=== PATIENT | female | born 1945 | race Caucasian/White ===

== ENCOUNTER → 2016-09-29 | Outpatient (CLI) | payer OTHER | LOC: FIMAGING 14:13 | PROVIDERS: ATTEND Family Medicine | DX: Z12.31 Encounter for screening mammogram for malignant neoplasm of breast (principal) | CPT/HCPCS: G0202 ==

== ENCOUNTER → 2017-05-24 | Outpatient (CLI) | payer OTHER | LOC: BMCIMAGING 14:56 | PROVIDERS: ATTEND Family Medicine | DX: Z01.818 Encounter for other preprocedural examination (principal); M25.569 Pain in unspecified knee; J44.9 Chronic obstructive pulmonary disease, unspecified; R91.8 Other nonspecific abnormal finding of lung field ==

== ENCOUNTER → 2017-05-31 | Outpatient (CLI) | payer OTHER ==
[~2017-05-31] MED LIST: IOPAMIDOL (ISOVUE-300) 100 ML BTL ONE
== END ==
LOC: FIMAGING 14:07
PROVIDERS: ATTEND Orthopaedic Surgery
DX: Z01.818 Encounter for other preprocedural examination (principal); M17.12 Unilateral primary osteoarthritis, left knee; R93.8 Abnormal findings on diagnostic imaging of other specified body structures
CPT/HCPCS: 71260; 73700; Q9967

== ENCOUNTER 2017-06-29 06:52 | Observation (INO) | payer OTHER ==
[~2017-06-29 06:52] MED LIST changes: -IOPAMIDOL (ISOVUE-300) 100 ML BTL ONE; +ROPIVACAINE 0.2% 80 MG, EPINEPHrine 0.2 MG, KETOROLAC TROMETHAMINE 30 MG in SYRINGE 0 ML IU ONE; +TRANEXAMIC ACID 3,000 MG in NS (SYRINGE) 50 ML IRR ONE
[2017-06-29] MEDS ORDERED: BUPI/epINEPH/KETOROLAC IU ONE (07:00)
[2017-06-29] MEDS ORDERED: FAMOTIDINE 20 MG TAB PO ONE (07:04)
[2017-06-29] MEDS ORDERED: ACETAMINOPHEN 325 MG TAB PO ONE (07:04)
[2017-06-29] MEDS ORDERED: ceFAZolin 2 GM/SWFI 2 GM/20 ML SYR IVP ONE (07:04)
[2017-06-29] MEDS ORDERED: DEXAMETHASONE 4 MG/ML VIAL IVP ONE (07:04)
[2017-06-29] MEDS ORDERED: LR 1,000 ML IV ONE (07:05)
[2017-06-29] MEDS ORDERED: LIDOCAINE 1% 2 ML INJ ID PRN (07:05)
--- NOTE | 2017-06-29 07:09 | PDHPUP ---
History & Physical Update H&P update statement: This history and physical update is based on an assessment of the patient which was completed after admission or registration (within 24 hours), but prior to the surgery/procedure. H&P update: H&P reviewed & patient examined, no change in patient's condition since H&P completed
[2017-06-29] MEDS ORDERED: MIDAZOLAM 2 MG/2 ML VIAL IVP ONE (07:54)
--- NOTE | 2017-06-29 07:55 | PDANEPAE ---
ANE History of Present Illness here for TKA ANE Past Medical History - Cardiovascular History Hx Hypertension: No Hx Arrhythmias: No Hx Chest Pain: No Hx Coronary Artery / Peripheral Vascular Disease: No Hx CHF / Valvular Disease: No Hx Palpitations: No Cardiovascular History Comment: on simvastatin - Pulmonary History Hx COPD: No Hx Asthma/Reactive Airway Disease: No Hx Recent Upper Respiratory Infection: No Hx Oxygen in Use at Home: No Hx Sleep Apnea: No Sleep Apnea Screening Result - Last Documented: Negative - Neurologic History Hx Cerebrovascular Accident: No Hx Seizures: No Hx Dementia: No - Endocrine History Hx Diabetes: No Endocrine History Comment: hypothyroid - Renal History Hx Renal Disorders: No - Liver History Hx Hepatic Disorders: No - Neurological & Psychiatric Hx Hx Neurological and Psychiatric Disorders: No - Cancer History Hx Cancer: No - Congenital Disorder History Hx Congenital Disorders: No - GI History Hx Gastrointestinal Disorders: No - Other Health History Other Health History: Post Polio Syndrome-weaker L leg;. OA L knee; - Chronic Pain History Chronic Pain: Yes (L knee) - Surgical History Prior Surgeries: hysterectomy. L knee scope. L leg-post polio. R knee sx- child ANE Review of Systems Review of systems is: negative Review of Systems: - Exercise capacity Exercise capacity: >=4 METS METS (RN): 4 METS ANE Patient History - Allergies Allergies/Adverse Reactions: No Known Allergies Allergy (Verified 06/12/17 11:00) - Home Medications Home medications: home medication list seen and reviewed Home Medications: Carboxymethylcellulose 1% [Refresh Celluvisc (*)] 1 drop EACHEYE DAILY PRN 06/08 [Last Taken 06/29/17] Cholecalciferol Vit D3 [Vitamin D3 2000 units tab (OTC)] 2,000 units PO DAILY [Last Taken 06/15/17] Herbals/Supplements -Info Only 1 ea PO DAILY 06/08/17 [Last Taken 06/15/17] Levothyroxine [Synthroid 75 mcg (*)] 75 mcg PO DAILY06 06/08/17 [Last Taken ] Multivitamins [Multivitamin (*)] 1 each PO DAILY 06/08/17 [Last Taken 06/15/17] [place]-3 Fatty Acids [Fish Oil 1000 mg (*)] 1,000 mg PO DAILY 06/08/17 [Last Taken 06/15/17] Simvastatin [Zocor] 40 mg PO DAILY 06/08/17 [Last Taken 06/29/17] - NPO status NPO Status: no food or drink >8 hours NPO Since - Liquids (Date): 06/29/17 NPO Since - Liquids (Time): 06:00 NPO Since - Solids (Date): 06/28/17 NPO Since - Solids (Time): 19:00 - Smoking Hx Smoking Status: Former smoker ANE Labs/Vital Signs - Vital Signs Vital Signs: reviewed preoperatively; see RN documention for details Blood Pressure: 131/75 Heart Rate: 73 Respiratory Rate: 16 O2 Sat (%): 94 Height: 160.02 cm Weight: 63.503 kg ANE Physical Exam - Airway Neck exam: FROM - Pulmonary Pulmonary: no respiratory distress - Cardiovascular Cardiovascular: regular rate and rhythym - ASA Status ASA Status: II ANE Anesthesia Plan Anesthesia Plan: spinal
[2017-06-29] MEDS ORDERED: TRANEXAMIC ACID 3,000 MG/50 ML BAG IRR ONE (08:05)
[2017-06-29] MEDS ORDERED: DEXAMETHASONE 4 MG/ML VIAL IVP PRN (08:59)
[2017-06-29] MEDS ORDERED: fentaNYL 100 MCG/2 ML INJ IVP PRN (08:59)
[2017-06-29] MEDS ORDERED: ALBUTEROL 3 ML DEYVIAL IH PRN (08:59)
[2017-06-29] MEDS ORDERED: oxyCODONE IR 5 MG TAB PO PRN (08:59)
[2017-06-29] MEDS ORDERED: ONDANSETRON 4 MG/2 ML VIAL IVP PRN ×2 (08:59→10:57)
[2017-06-29] MEDS ORDERED: NALOXONE HCL 0.4 MG/ML INJ IVP PRN (08:59)
[2017-06-29] MEDS ORDERED: HYDROmorphone HCL/NS 0.5 MG/ML SYR IVP PRN (08:59)
[2017-06-29] MEDS ORDERED: HYDROCODONE/APAP 5/325 TAB PO PRN (08:59)
[2017-06-29] MEDS ORDERED: LR 500 ML IV PRN (08:59)
[2017-06-29] MEDS ORDERED: PROPOFOL/EMULSION 500 MG/50 ML BOTTLE IV ONE (09:05)
[2017-06-29] MEDS ORDERED: fentaNYL 100 MCG/2 ML INJ ONE (09:10)
[2017-06-29] MEDS ORDERED: PROMETHAZINE HCL 25 MG/ML INJ IVP PRN (10:57)
[2017-06-29] MEDS ORDERED: POLYETHYLENE GLYCOL 3350 17 GM PKT PO PRN (10:57)
[2017-06-29] MEDS ORDERED: METOCLOPRAMIDE 10 MG/2 ML VIAL IVP PRN (10:57)
[2017-06-29] MEDS ORDERED: TEMAZEPAM 15 MG CAP PO PRN (10:57)
[2017-06-29] MEDS ORDERED: LACTULOSE 20 GM/30 ML UDCUP PO PRN (10:57)
[2017-06-29] MEDS ORDERED: PROMETHAZINE HCL 25 MG SUPPR PR PRN (10:57)
[2017-06-29] MEDS ORDERED: CYCLOBENZAPRINE 10 MG TAB PO PRN (10:57)
[2017-06-29] MEDS ORDERED: MAGNESIUM HYDROXIDE 30 ML UDCUP PO PRN (10:57)
[2017-06-29] MEDS ORDERED: ONDANSETRON DISINTEGRATING 4 MG TAB PO PRN (10:57)
[2017-06-29] MEDS ORDERED: BISACODYL 10 MG SUPP PR PRN (10:57)
[2017-06-29] MEDS ORDERED: diphenhydrAMINE 25 MG CAP PO PRN (10:57)
[2017-06-29] MEDS ORDERED: DIPHENOXYLATE/ATROPINE LOMOTIL 1 TAB PO PRN (10:57)
--- NOTE | 2017-06-29 10:57 | POSTOPPROG ---
Post Op Note Date of Operation: 06/29/17 Surgeon: Michael Montoya Lead Nuclear Medicine Technologist: crystal montoya Anesthesiologist: dr. rowan Anesthesia: Spinal, Other (Specify) (adductor canal block) Pre-op Diagnosis: left knee OA and global instability Post-op Diagnosis: same Indication: left knee pain due to OA that failed conservative measures Procedure: L TKA robot assisted Findings: severe knee OA and global instability Inf/Abcess present in the surg proc area at time of surgery?: No EBL: 50-100
[2017-06-29] MEDS ORDERED: LR 1,000 ML IV SCH (11:00)
[2017-06-29] MEDS ORDERED: CARBOXYMETHYLCELLULOSE 1% 0.4 ML DROPERETTE EACHEYE PRN (11:08)
[2017-06-29] MEDS: ACETAMINOPHEN 325 MG TAB PO SCH ×2 (13:23→17:38)
--- NOTE | 2017-06-29 13:58 | POSTANESTH ---
Post Anesthetic Evaluation Cardiovascular Status: Normal, Stable Respiratory Status: Normal, Stable Level of Consciousness/Mental Status: Can Participate in Eval Pain Control: Adequate, Prn Tx Ordered Nausea/Vomiting Control: Adequate, Prn Tx Ordered Complications Possibly Related to Anesthesia: None Noted
[2017-06-29] MEDS ORDERED: ceFAZolin 2 GM/DEXTROSE 100 ML IV SCH (14:00)
--- NOTE | 2017-06-29 17:12 | GOP ---
[f rep st] OPERATIVE REPORT DATE OF OPERATION: 06/29/2017 SURGEON: Mony Garcia MD [employer]: Libia Garcia PA-C. ANESTHESIA: Spinal. PREOPERATIVE DIAGNOSIS: Left knee osteoarthritis. POSTOPERATIVE DIAGNOSIS: Left knee osteoarthritis. PROCEDURE PERFORMED: Left total knee arthroplasty with computer navigation, robotic assist. FINDINGS: ESTIMATED BLOOD LOSS: 30 cc. INDICATIONS: The patient is a 72-year-old female with severe and progressive pain and deformity of the left knee, unresponsive to conservative care. The risks and benefits of surgical intervention were explained in detail. DESCRIPTION OF PROCEDURE: The patient was brought to the operative room and placed on the table in the supine position. Spinal anesthesia was induced without difficulty. A pneumatic tourniquet was applied about the left proximal thigh, and the leg was prepped and draped in a sterile fashion. The leg romero was applied. After exsanguination by elevation the tourniquet was inflated to 250 mmHg. Incision was made anterior medial from the tibial tuberosity to a point 2 cm proximal to the superior pole of the patella. Medial parapatellar arthrotomy was carried out from the superior pole of the patella and posteriorly in line with the fibers of the Type II VMO. The medial collateral ligament was elevated and the infrapatellar fat pad was resected. The patella was everted and the articular surface was excised. A 29 mm patellar button was placed. Attention was turned first to the distal aspect of the femur. After exposure of the femur, 2 half pins were placed for fixation of the femoral array. In a similar fashion, 2 pins were placed anteromedial on the tibia for fixation of the tibial array. External land marking and registration of the hip center was performed without difficulty. Internal femoral and tibial registration was carried out without difficulty and the femoral and tibial checkpoints were placed and verified for accuracy. Attention was turned to the femur. The foot print for the size 1 femoral component was cut with the saw using the Guia[employer] robotic system and verified for accuracy against the CT based plan. In a similar fashion, the saw was used to cut the footprint for the size 2 tibial component using the Guia[employer]ol[employer] system and verified for accuracy against the CT based plan. The tibial articular surface was excised without difficulty, followed by the intercondylar box cut. The knee was extended and the remnants of the medial and lateral meniscus were excised. The posterior capsule was injected with ropivacaine, epinephrine and Toradol. A size 2 tibial tray was positioned. Trial reduction was then carried out. There was excellent range of motion, alignment, and stability using the 11 mm polyethylene. All trials were then removed. The joint was thoroughly irrigated and carefully dried. The X3CS press fit components were implanted. The permanent 11 mm polyethylene was placed without difficulty. The tourniquet was deflated and all bleeders were coagulated. The wound was thoroughly irrigated and closed using interrupted sutures of 2-0 Vicryl for the joint capsule. The subcu was closed with 3-0 Vicryl and the skin with 4-0 Monocryl. Dermabond and Steri-Strips were applied followed by a compressive dressing. The patient was then moved from the operating room to the recovery room in good condition, having tolerated the procedure well. /[id number]/MODL MTDD
[2017-06-29] MEDS: oxyCODONE IR 5 MG TAB PO PRN (17:38)
[2017-06-29] MEDS: ceFAZolin 2 GM/SWFI 2 GM/20 ML SYR IVP SCH (17:39)
[2017-06-29] MEDS: ASPIRIN 81 MG CHEWABLE TAB PO SCH (20:56)
[2017-06-29] MEDS: SENNOSIDES/DOCUSATE SODIUM TAB PO SCH (20:57)
[2017-06-29] MEDS: FAMOTIDINE 20 MG TAB PO SCH (20:57)
[2017-06-30] MEDS: ACETAMINOPHEN 325 MG TAB PO SCH ×2 (00:03→06:01)
[2017-06-30] MEDS: ceFAZolin 2 GM/SWFI 2 GM/20 ML SYR IVP SCH (02:03)
[2017-06-30] MEDS ORDERED: LEVOTHYROXINE 75 MCG TAB PO SCH (06:00)
[2017-06-30 07:29] VITALS: BP 129/78
[2017-06-30] MEDS: SENNOSIDES/DOCUSATE SODIUM TAB PO SCH (08:48)
[2017-06-30] MEDS: ASPIRIN 81 MG CHEWABLE TAB PO SCH (08:48)
[2017-06-30] MEDS: FAMOTIDINE 20 MG TAB PO SCH (08:49)
[2017-06-30] MEDS: oxyCODONE IR 5 MG TAB PO PRN (08:49)
[2017-06-30] MEDS ORDERED: ATORVASTATIN CALCIUM 20 MG TAB PO SCH (09:00)
--- NOTE | 2017-06-30 09:44 | SOAPPROG ---
SOAP Progress Note Assessment/Plan: Assessment: Patient is doing well POD 1 s/p L TKA pain is well controlled on oral pain meds, adductor canal block is still in effect VTE ppx: recommend ASA 81 mg BID d/c planning: d/c to home today Plan: 06/30/17 09:43 Subjective: Roas Elena is doing well, denies SOB ,chest pain and N/V. states knee is much more stable Objective: Vital Signs Temp Pulse Resp BP Pulse Ox 36.4 C 61 15 129/78 H 94 06/30/17 07:26 06/30/17 07:26 06/30/17 07:26 06/30/17 07:26 06/30/17 07:26 Laboratory Results 06/30/17 04:26 06/29/17 06/30/17 07/01/17 05:59 05:59 05:59 Intake Total 1950 Output Total 1700 400 Balance 251 -400 LLE: incision dressing is clean and dry, NVI, +pf/df ICD10 Worksheet Patient Problems: Problems Problem Status Onset Primary localized osteoarthritis of left knee Acute
--- NOTE | 2017-07-03 16:46 | GDS ---
[f rep st] DISCHARGE SUMMARY ADMISSION DIAGNOSIS: Left knee osteoarthritis. DISCHARGE DIAGNOSIS: Left knee osteoarthritis. PROCEDURE: Left total knee arthroplasty, robot assisted. VTE PROPHYLAXIS: Aspirin twice daily for a month. BRIEF DESCRIPTION OF HOSPITAL STAY: Patient was admitted for an elective joint arthroplasty. The pa tient tolerated the procedure well and has passed physical therapy. The patient was given appropriat e antibiotic prophylaxis and venous thromboembolism prophylaxis. The patient's pain was well control led on oral pain medication, patient was holding down food, and had urinated. Decision was made to d ischarge the patient. The patient was given post-operative prescriptions pre-operatively. PLAN: To follow up as scheduled at Dr. Garcia's office july 19 at 2:30. /[id number]/MODL
== END 2017-06-30 11:11 | disposition home or self-care (01) ==
LOC: F3N 06:52 → INTOOBSV 06:52 → F3N 12:48
PROVIDERS: ADMIT Orthopaedic Surgery; ATTEND Orthopaedic Surgery
PROC: 8E0Y0CZ Robotic Assisted Procedure of Lower Extremity, Open Approach (ICD-10-PCS; principal; 2017-06-29 09:15)
PROC: 8E0YXBG Computer Assisted Procedure of Lower Extremity, With Computerized Tomography (ICD-10-PCS; principal; 2017-06-29 09:15)
PROC: 0SRD06Z Replacement of Left Knee Joint with Oxidized Zirconium on Polyethylene Synthetic Substitute, Open Approach (ICD-10-PCS; principal; 2017-06-29 09:15)
DX: M17.12 Unilateral primary osteoarthritis, left knee (principal); E03.9 Hypothyroidism, unspecified; G14 Postpolio syndrome; Z87.891 Personal history of nicotine dependence
CPT/HCPCS: 27447; 73560; 88311; 97110; 97116; 97161; 97165; C1776; G8978; G8979; G8987; G8988; G8989; J0171; J0690; J1100; J1885; J2250; J2704; J3010

== ENCOUNTER → 2018-07-23 | Outpatient (CLI) | payer OTHER | LOC: FIMAGING 14:13 | PROVIDERS: ATTEND Orthopaedic Surgery | DX: M17.11 Unilateral primary osteoarthritis, right knee (principal); Z87.891 Personal history of nicotine dependence ==

== ENCOUNTER 2018-08-14 08:05 | Inpatient (IN) | payer OTHER | END 2018-08-15 10:22 | disposition home or self-care (01) | LOC: F3N 08:05 ==